=== PATIENT | female | born 1980 | race Caucasian/White ===

== ENCOUNTER 2019-11-21 20:33 | Emergency (ER) | payer MEDICAID, OTHER ==
[~2019-11-21] VITALS: Ht 162.6 cm; Wt 68.2 kg
[2019-11-21 21:29] LABS: CLARITY,URINE SLIGHTLY CLOUDY (Clear); COLOR,URINE YELLOW (Yellow); GLUCOSE, URINE NEGATIVE (Neg); KETONES,URINE NEGATIVE (Neg); LEUKOCYTE ESTERASE ,URINE NEGATIVE (Neg); NITRITES, URINE NEGATIVE (Neg); OCCULT BLOOD,URINE NEGATIVE (Neg); PROTEIN,URINE NEGATIVE (Neg); UROBILINOGEN,URINE 0.2 E.U/dL (0.2-1.0)
[2019-11-21 21:30] LABS: URINE HCG NEGATIVE (NEG)
[2019-11-21 21:35] LABS: UA COLLECTION TYPE CLN CATCH MIDSTREAM
[2019-11-21 21:37] LABS: BACTERIA,URINE FEW /HPF (Neg); RBC,URINE 0-2 /HPF (0-2); WBC,URINE 0-4 /HPF (0-4)
[2019-11-21 21:38] LABS: SQUAMOUS EPITHELIAL CELL,UR MANY /LPF (FEW)
[2019-11-21] MEDS ORDERED: ondansetron/PF 4mg/2ml inj IV ONE (22:30)
[2019-11-21] MEDS ORDERED: morphine 4 MG/ML inj SYRINge IV ONE (22:30)
[2019-11-21 22:41] LABS: BASOPHILS % (AUTO) 0.9 % (0-1); EOSINOPHILS # (AUTO) 0.1 X10'3 (0-0.9); EOSINOPHILS % (AUTO) 2.3 % (0-6); HEMATOCRIT 39.9 % (35.0-45.0); HEMOGLOBIN 13.1 g/dl (12.0-16.0); LYMPHOCYTES # (AUTO) 2.1 X10'3 (1.1-4.8); MEAN CORPUSCULAR HEMOGLOBIN 29.5 PG (27.0-31.0); MEAN CORPUSCULAR HGB CONC 32.9 g/dL (33.0-36.5); MEAN CORPUSCULAR VOLUME 89.7 FL (78-98); MEAN PLATELET VOLUME 8.2 FL (7.4-10.4); MONOCYTES # (AUTO) 0.4 X10'3 (0-0.9); MONOCYTES % (AUTO) 7.8 % (2-12); NEUTROPHILS # (AUTO) 2.5 X10'3 (1.8-7.7); PLATELET COUNT 272 X10'3 (140-440); RED BLOOD COUNT 4.44 X10'6 (4.20-5.60); RED CELL DISTRIBUTION WIDTH 13.5 % (11.5-14.5); WHITE BLOOD COUNT 5.2 X10'3 (4.5-11.0)
[2019-11-21 22:48] LABS: ALANINE AMINOTRANSFERASE 20 U/L (12-78); ALBUMIN 3.7 G/DL (3.4-5.0); ALBUMIN/GLOBULIN RATIO 0.9 (1.1-1.5); ALKALINE PHOSPHATASE 64 IU/L (46-116); ANION GAP 6 (8-16); ASPARTATE AMINO TRANSFERASE 14 U/L (10-37); BILIRUBIN,TOTAL 0.3 MG/DL (0.1-1.0); BLOOD UREA NITROGEN 4 MG/DL (7-18); BUN/CREATININE RATIO 4.8 (6.6-38.0); CALCIUM 8.5 MG/DL (8.5-10.1); CHLORIDE 107 MMOL/L (99-107); CREATININE 0.83 MG/DL (0.40-0.90); GLUCOSE 85 MG/DL (70-104); LIPASE 108 U/L (73-393); POTASSIUM 3.8 MMOL/L (3.5-5.1); SODIUM 142 MMOL/L (135-145); TOTAL CARBON DIOXIDE 29.1 MMOL/L (24-32); TOTAL PROTEIN 7.6 G/DL (6.4-8.2); eGFR 77 ML/MIN
--- NOTE | 2019-11-21 22:48 | NUR ---
assisting RN with pt care, pt c/o lower back pain 02/18, medicated per MD order, pt does have a ride home with boyfriend, verbalized understanding no driving while on narcotic
[2019-11-21 22:54] LABS: URINE AMPHETAMINE SCREEN NEGATIVE (Neg); URINE BARBITUATE SCREEN NEGATIVE (Neg); URINE BENZODIAZEPINES SCREEN POSITIVE (Neg); URINE CANNABINOID SCREEN POSITIVE (Neg); URINE COCAINE SCREEN NEGATIVE (Neg); URINE METHADONE SCREEN NEGATIVE (Neg); URINE OPIATE SCREEN NEGATIVE (Neg); URINE PHENCYCLIDINE SCREEN NEGATIVE (Neg)
--- NOTE | 2019-11-22 00:06 | NUR ---
CHAPERONED TRINA TILLMAN IN OF1 ROOM FOR VAGINAL EXAM AND CULTURE COLLECTION. ASSISTED PT BACK TO ROOM AND PLACED BACK IN BED.
--- NOTE | 2019-11-22 00:19 | NUR ---
Call Aleksandr green prior to discharge [phone]
[2019-11-22] MEDS ORDERED: morphine 4 MG/ML inj SYRINge IV ONE (00:20)
[2019-11-22] MEDS ORDERED: ketorolac trometh. 30mg/ml inj. IV ONE (00:20)
[2019-11-22] MEDS ORDERED: CefTRIAXone 250MG IM Kit w/LIDOcaine IM ONE (00:30)
[2019-11-22] MEDS ORDERED: azithromycin 250mg tablet PO ONE (00:30)
[2019-11-22] MEDS ORDERED: METR-159 PO (00:51)
[2019-11-22 01:02] VITALS: BP 108/59
== END 2019-11-22 01:03 | disposition home or self-care (01) ==
LOC: ER 20:34
DX: N76.0 Acute vaginitis (principal); R10.84 Generalized abdominal pain; R50.9 Fever, unspecified; R11.0 Nausea
CPT/HCPCS: 36415; 74176; 80053; 80305; 81001; 81025; 83690; 85025; 85610; 87210; 87491; 87591; 96372; 96374; 96375; 96376; 99284; J0696; J1885; J2270; J2405

== ENCOUNTER 2020-01-23 22:26 | Emergency (ER) | payer MEDICAID, OTHER ==
[~2020-01-23] VITALS: Ht 160 cm; Wt 65.9 kg
[2020-01-23 22:36] VITALS: BP 107/59
[2020-01-23 23:14] LABS: CLARITY,URINE SLIGHTLY CLOUDY (Clear); COLOR,URINE YELLOW (Yellow); GLUCOSE, URINE NEGATIVE (Neg); KETONES,URINE NEGATIVE (Neg); LEUKOCYTE ESTERASE ,URINE SMALL (Neg); NITRITES, URINE NEGATIVE (Neg); OCCULT BLOOD,URINE NEGATIVE (Neg); PH,URINE 6.5 (4.8-8.0); PROTEIN,URINE NEGATIVE (Neg); UROBILINOGEN,URINE 0.2 E.U/dL (0.2-1.0)
[2020-01-23 23:17] LABS: UA COLLECTION TYPE CLN CATCH MIDSTREAM
[2020-01-23 23:19] LABS: BACTERIA,URINE 3+ /HPF (Neg); RBC,URINE NONE SEEN /HPF (0-2); SQUAMOUS EPITHELIAL CELL,UR MODERATE /LPF (FEW); WBC,URINE 20-30 /HPF (0-4)
[2020-01-23] MEDS ORDERED: ketorolac trometh inj. 60 MG/2 ML VIAL IM ONE (23:35)
[2020-01-23] MEDS ORDERED: orphenadrine citrate 60mg/2ml inj. IM ONE (23:35)
[2020-01-24] MEDS ORDERED: CEPH500C5 PO (00:11)
[2020-01-24] MEDS ORDERED: HYDROcodone/acetaminophen 5mg/325mg tablet PO ONE (00:15)
[2020-01-24] MEDS ORDERED: FLUC150T PO (00:15)
== END 2020-01-24 01:02 | disposition home or self-care (01) ==
LOC: ER 22:26
DX: N39.0 Urinary tract infection, site not specified (principal); R07.81 Pleurodynia; R30.9 Painful micturition, unspecified; R10.9 Unspecified abdominal pain; Z87.442 Personal history of urinary calculi; Z90.710 Acquired absence of both cervix and uterus; Z79.2 Long term (current) use of antibiotics
CPT/HCPCS: 81001; 87088; 96372; 99284; J1885; J2360

== ENCOUNTER 2020-01-31 14:40 | Emergency (ER) | payer OTHER ==
[~2020-01-31] VITALS: Ht 160 cm; Wt 62.5 kg
[~2020-01-31 14:40] MED LIST: CEPH500C5 PO
[2020-01-31] MEDS ORDERED: ondansetron/PF 4mg/2ml inj IV ONE (15:45)
[2020-01-31] MEDS ORDERED: CefTRIAXone 2gm/D5W 50ml 50 ML IV ONE (15:45)
[2020-01-31] MEDS ORDERED: ketorolac trometh. 30mg/ml inj. IV ONE (15:45)
[2020-01-31] MEDS ORDERED: normal saline 1000ML IV soln IVB ONE (15:45)
[2020-01-31] MEDS ORDERED: azithromycin 250mg tablet PO ONE (15:45)
[2020-01-31] MEDS ORDERED: CefTRIAXone inj 2,000 MG in normal saline 100ml IV soln 100 ML IV ONE (15:55)
[2020-01-31 16:15] LABS: EOSINOPHILS # (AUTO) 0.1 X10'3 (0-0.9); EOSINOPHILS % (AUTO) 2.9 % (0-6); HEMATOCRIT 37.4 % (35.0-45.0); HEMOGLOBIN 12.4 g/dl (12.0-16.0); LYMPHOCYTES # (AUTO) 1.8 X10'3 (1.1-4.8); LYMPHOCYTES % (AUTO) 39.2 % (21-51); MEAN CORPUSCULAR HEMOGLOBIN 29.3 PG (27.0-31.0); MEAN CORPUSCULAR HGB CONC 33.2 g/dL (33.0-36.5); MEAN CORPUSCULAR VOLUME 88.5 FL (78-98); MEAN PLATELET VOLUME 7.6 FL (7.4-10.4); MONOCYTES # (AUTO) 0.3 X10'3 (0-0.9); MONOCYTES % (AUTO) 6.7 % (2-12); NEUTROPHILS # (AUTO) 2.3 X10'3 (1.8-7.7); NEUTROPHILS % (AUTO) 50.2 % (42-75); PLATELET COUNT 323 X10'3 (140-440); RED BLOOD COUNT 4.23 X10'6 (4.20-5.60); RED CELL DISTRIBUTION WIDTH 13.9 % (11.5-14.5); WHITE BLOOD COUNT 4.5 X10'3 (4.5-11.0)
[2020-01-31 16:28] LABS: ALANINE AMINOTRANSFERASE 40 U/L (12-78); ALBUMIN 3.7 G/DL (3.4-5.0); ALBUMIN/GLOBULIN RATIO 1.1 (1.1-1.5); ALKALINE PHOSPHATASE 66 IU/L (46-116); ANION GAP 9 (8-16); ASPARTATE AMINO TRANSFERASE 38 U/L (10-37); BILIRUBIN,TOTAL 0.4 MG/DL (0.1-1.0); BLOOD UREA NITROGEN 6 MG/DL (7-18); BUN/CREATININE RATIO 7.8 (6.6-38.0); CALCIUM 8.5 MG/DL (8.5-10.1); CHLORIDE 106 MMOL/L (99-107); CREATININE 0.77 MG/DL (0.40-0.90); GLUCOSE 93 MG/DL (70-104); POTASSIUM 3.7 MMOL/L (3.5-5.1); SODIUM 142 MMOL/L (135-145); TOTAL CARBON DIOXIDE 27.1 MMOL/L (24-32); TOTAL PROTEIN 7.2 G/DL (6.4-8.2); eGFR 84 ML/MIN
[2020-01-31 17:01] LABS: URINE HCG NEGATIVE (NEG)
[2020-01-31 17:03] LABS: CLARITY,URINE CLEAR (Clear); COLOR,URINE STRAW (Yellow); GLUCOSE, URINE NEGATIVE (Neg); KETONES,URINE NEGATIVE (Neg); LEUKOCYTE ESTERASE ,URINE NEGATIVE (Neg); NITRITES, URINE NEGATIVE (Neg); OCCULT BLOOD,URINE NEGATIVE (Neg); PH,URINE 5.5 (4.8-8.0); PROTEIN,URINE NEGATIVE (Neg); UROBILINOGEN,URINE 0.2 E.U/dL (0.2-1.0)
[2020-01-31 17:08] LABS: UA COLLECTION TYPE OTHER
[2020-01-31] MEDS ORDERED: CEPH500C5 PO (17:12)
[2020-01-31] MEDS ORDERED: PHEN-786 PO (17:25)
[2020-01-31] MEDS ORDERED: HYDROcodone/acetaminophen 10/325mg tab PO ONE (17:30)
[2020-01-31] MEDS ORDERED: phenazopyridine 100mg tablet PO ONE (17:30)
[2020-01-31 18:17] VITALS: BP 113/57
== END 2020-01-31 18:15 | disposition home or self-care (01) ==
LOC: ER 14:40
DX: R30.0 Dysuria (principal); M54.5 Low back pain; R10.9 Unspecified abdominal pain; Z87.442 Personal history of urinary calculi; Z90.710 Acquired absence of both cervix and uterus; Z79.2 Long term (current) use of antibiotics
CPT/HCPCS: 36415; 51702; 80053; 81003; 81025; 85025; 96365; 96375; 99284; J0696; J1885; J2405; J7030; 51701